=== PATIENT | male | born 1990 | race African-American/Black ===

== ENCOUNTER 2016-12-13 22:36 | Emergency (ER) | payer SELFPAY ==
[~2016-12-13] VITALS: Ht 182.9 cm; Wt 90.7 kg
[2016-12-13 22:49] VITALS: BP 164/88
--- NOTE | 2016-12-13 23:09 | Emergency Room Report ---
History of Present Illness General Chief Complaint: Skin Rash/Abscess Source: Patient Present Illness HPI This is a 26-year-old male with no past medical history. He presents with an abscess to the left side of his neck the last 3 days. Worse after he tried to pop it. Denies any fever or chills. Pain is 10 out of 10. Worse with movement and palpation. No fever no drainage. Allergies: Coded Allergies: PENICILLIN G (Verified Allergy, Unknown, 12/13/16) Patient History Past Medical History: see triage record, old chart reviewed Past Surgical History: none Pertinent Family History: none Social History: Reports: smoking Immunizations: other Reviewed Nursing Documentation: PMH: Agreed, PSxH: Agreed Nursing Documentation-PMH Past Medical History: No Stated History Review of Systems Eye: Denies: blurred vision, eye pain ENT: Denies: ear pain, nose congestion, throat swelling Respiratory: Denies: cough, shortness of breath Cardiovascular: Denies: chest pain, palpitations Gastrointestinal: Denies: abdominal pain, diarrhea, nausea, vomiting Musculoskeletal: Denies: back pain, joint pain Skin: Denies: rash Neurological: Denies: headache, numbness Endocrine: Denies: increased thirst, increased urine Hematologic/Lymphatic: Denies: easy bruising All Other Systems: negative except mentioned in HPI Physical Exam Vital Signs Date Time Temp Pulse Resp B/P Pulse Ox O2 Delivery O2 Flow Rate FiO2 12/13/16 22:40 97.7 75 16 164/88 100 Room Air vitals normal except hypertension Sp02 EP Interpretation: reviewed, normal General Appearance: well appearing, no apparent distress, alert Head: normocephalic, atraumatic Eyes: bilateral eye EOMI, bilateral eye PERRL ENT: hearing grossly normal, normal pharynx Neck: full range of motion, supple, no meningismus, other - Left side of his neck this is still to the submental area, there is a fluctuant area of 3 cm. Small necrotic area in the center. Tender to palpation. Mild redness circumferentially. Respiratory: chest non-tender, lungs clear, normal breath sounds Cardiovascular #1: regular rate, rhythm, no murmur Gastrointestinal: normal bowel sounds, non tender, no mass, no organomegaly, no bruit, non-distended Musculoskeletal: back normal, gait/station normal, normal range of motion Psychiatric: mood/affect normal Skin: warm/dry Procedures Incision and Drainage Incision and Drainage : Consent: Verbal Site: Neck Blade Size: 11 I & D Procedure: betadine prep, sterile drapes applied, sterile dressing applied, gauze wick placed Wound Location: other - Neck Anesthesia: 1% Lidocaine Volume Anesthetic (ccs): 4 Patient Tolerated: Well Complications: None Progress Wound clean with Betadine. Local acetic with 1% lidocaine without epinephrine. I made a 2 cm incision. There was moderate amount of pus expressed. Loculated area broken up. Wound irrigated. Packing done. Patient tolerated procedure without a problem. Medical Decision Making Diagnostic Impression: Primary Impression: Cutaneous abscess of neck ER Course Patient with abscess to the neck. Superficial. Most likely MRSA. Antibiotic started. No deep infection to Last Vital Signs Date Time Temp Pulse Resp B/P Pulse Ox O2 Delivery O2 Flow Rate FiO2 12/13/16 22:49 97.7 82 16 164/88 100 Room Air Status: improved Disposition: HOME, SELF-CARE Condition: Stable Scripts Hydrocodone/Acetaminophen 5-325* (HYDROCODONE/ACETAMINOPHEN 5-325*) 1 Each Tablet 1 TAB ORAL Q6H Y for For Pain, #20 TAB 0 Refills Prov: ADRIANE ZHANG M.D. 12/13/16 Trimethoprim/Sulfamethoxazole 160/800* (BACTRIM DS TABLET*) 1 Each Tablet 1 TAB ORAL Q12H, #14 TAB 0 Refills Prov: ADRIANE ZHANG M.D. 12/13/16 Patient Instructions: Abscess Additional Instructions: Follow up with your doctor in 2 days. Return for packing removal. Return sooner if worse. ADRIANE ZHANG M.D. Dec 13, 2016 23:09
[2016-12-13] MEDS ORDERED: HYDROCODON-ACE1 EA15 ORAL (23:10)
[2016-12-13] MEDS ORDERED: BACTRIM DS TAB1 EAC1 ORAL (23:10)
[2016-12-13] MEDS ORDERED: Bactrim DS (160mg/800mg) tab ORAL ONE (23:15)
[2016-12-13] MEDS ORDERED: Norco 5mg/325mg tab ORAL ONE (23:15)
[2016-12-13 23:17] VITALS: BP 164/88
== END 2016-12-13 23:17 | disposition home or self-care (01) ==
LOC: EMR 23:08
DX: L02.11 Cutaneous abscess of neck (principal); Z88.0 Allergy status to penicillin; F17.200 Nicotine dependence, unspecified, uncomplicated
CPT/HCPCS: 10060